=== PATIENT | female | born 1980 ===

== ENCOUNTER 2024-02-23 15:10 | Emergency (ER) | payer OTHER, SELFPAY ==
[2024-02-23] VITALS (7 sets, daily range): BP systolic 110–125; BP diastolic 62–80; PULSE 77–90; RESP 16–18; TEMP 36.7–36.9; O2SAT 94–100; BMI 50.1
--- NOTE | ~2024-02-23 | CT_ITS ---
EXAMINATION: CT ABDOMEN AND PELVIS WITHOUT CONTRAST CLINICAL INFORMATION: Left flank pain COMPARISON: None available. TECHNIQUE: Multidetector volumetric imaging was performed from the superior aspect of the liver through the pubic symphysis. Sagittal and coronal reformatted images were obtained on the technologist's workstation. This CT examination was performed using dose optimization techniques as appropriate, variously including the following: *Automated exposure control *Adjustment of mA and/or kV according to patient size (this includes techniques or standardized protocols for targeted exams where dose is matched to indication/reason for exam; i.e. extremities or head) *Use of iterative reconstruction technique DLP: 1159 mGy-cm FINDINGS: LUNG BASES: 0.3 cm subsolid peripheral nodule posterolateral left lower lobe. In low-risk patient this does not require any specific imaging follow-up. There is a tiny sliding-type hiatal hernia. LIVER, GALLBLADDER, AND BILIARY TREE: There are 3 circumscribed low attenuating lesions in the liver. These are too small to characterize and may represent cysts. In the absence of underlying chronic liver disease or known primary malignancy these do not require any specific imaging follow-up. There are surgical clips in the expected region of the gallbladder. There is no definite biliary dilation. PANCREAS: No suspicious abnormality. SPLEEN: Within normal limits ADRENAL GLANDS: No suspicious abnormality. There is a small circumscribed low attenuating mass in the left adrenal apex consistent with a lipid rich adenoma. This does not require any specific imaging follow-up. KIDNEYS AND URETERS: There is visualization of the intrarenal collecting system on the left. There is no opaque calculus. No perinephric stranding. BLADDER: The bladder is mildly distended. No suspicious abnormality. GASTROINTESTINAL TRACT: There is a large amount of fecal residue throughout the colon. No localized pericolonic fat stranding. ABDOMINAL WALL: No significant hernia is appreciated. LYMPH NODES: There are no enlarged abdominal or pelvic lymph nodes. I suspect a trace amount of nonspecific free pelvic fluid. VASCULAR: There is no abdominal aortic aneurysm. PELVIC VISCERA: Probable physiologic right ovarian cysts. No suspicious adnexal mass or collection. OSSEOUS STRUCTURES: No suspicious focal lesion. Suspect partial right hemilaminectomy at L4. There is lumbar disc narrowing with vacuum phenomena. CT/CT abdomen pelvis wo IV con IMPRESSION: There is no definite opaque urinary calculus. No suspicious mass or collection. The study was performed without IV contrast. Fleischner guidelines were followed.
--- NOTE | 2024-02-23 15:24 | ED_ITS ---
HPI - Abdominal Pain General Chief Complaint: Abdominal Pain Stated Complaint: BILAT FLANK N/V X1 WEEK FROM [facility]HTAQ MCNULTY Time Seen by Provider: 02/23/24 15:18 Source: patient Mode of arrival: ambulatory Limitations: no limitations History of Present Illness HPI narrative: 43-year-old female past history of kidney stones family inpatient psych for depression psychosis she states she has schizophrenia his history of kidney stones over the past week she has had some nausea and vomiting. She has a plan bilateral flank pain when I spoke to her it is mostly in the left. She denies any falls or injuries she denies any dysuria or frequency she states she is allergic to Toradol. Related Data Previous Rx's ?Medication ?Instructions ?Recorded ondansetron 4 mg disintegrating 4 mg PO Q6H #14 tabs 02/23/24 tablet Allergies Allergy/AdvReac Type Severity Reaction Status Date / Time codeine Allergy Unknown Verified 02/23/24 15:21 ketorolac Allergy Unknown Verified 02/23/24 15:21 montelukast [From Singulair] Allergy Unknown Verified 02/23/24 15:21 Penicillins Allergy Unknown Verified 02/23/24 15:21 Review of Systems Review of Systems Review of systems: General: Patient denies any fever chills recent illness or falls Musculoskeletal: Denies back pain or body aches or other injuries HEENT: denies headache, runny nose, ear pain Respiratory: denies shortness of breath, cough Cardiovascular: no chest pain or palpitations : Flank pain denies dysuria, frequency Abdomen: no nausea vomiting denies abdominal pain Extremities: no swelling, no pain Skin: no diaphoresis Yes all other systems are reviewed and are negative PMFSH Social History Social History Advance Directives: No Advance Directives Information Provided: No Physical Exam ED Vital Signs: Vital Signs - 24 hr 02/23/24 15:17 02/23/24 16:02 Temperature 98.4 F 98.4 F Pulse Rate 90 78 Respiratory Rate 18 18 Blood Pressure 122/76 113/67 Pulse Oximetry 98 94 Oxygen Delivery Method Room Air Room Air BMI result Body Mass Index 50.1 General: Well-appearing well-nourished in no signs of distress HEENT: Normocephalic atraumatic Neck: No signs of JVD, no masses no tenderness or lymphadenopathy Cardiovascular: Regular rate and rhythm Respiratory: Clear to auscultation bilaterally Abdomen: Soft nontender no masses 1 no CVA tenderness Extremities: Normal pedal pulses no signs of edema Skin: Dry warm no rashes Back: No tenderness full ROM Course Course Course Narrative: [address] is going for CT scan at this time educated the patient on how to give a clean sample in the future urine is equivocal I will give 1 dose of IV Rocephin while patient is here pending CT scan to rule out pyelonephritis as there was no blood in the urine it is very unlikely this kidney stone. Reevaluation(s) Reevaluation #1: 1735 CT and labs are all unremarkable patient did ask for pain medications and was prescribed some Tylenol we will waiting for the CT. Patient has had no episodes of vomiting I feel comfortable discharging the patient home at this time. With equivocal urinalysis I will hold off on sending home on antibiotics she has Zofran her facility I will discharge the patient this time. Medical Decision Making Medical Decision Making [facility] Narrative: Patient looks well I will send off labs and urine and reassess Differential Diagnosis Differential Diagnoses: The differential diagnosis associated with the presentation includes Kidney stone urinary tract infection pyelonephritis chronic pain Lab Data [facility] Lab Attestation statement: I reviewed the patient's lab results. Questionable UTIs the patient has 20 WBCs but also 20 squamous cells is not a clean sample I am happy to give a dose of Rocephin while awaiting the CT scan here. 02/23/24 15:48 02/23/24 15:48 Labs: Lab Results 02/23/24 02/23/24 02/23/24 Range/Units 15:48 16:10 16:27 WBC 8.9 (4.8-10.8) X10*3/uL RBC 4.36 (4.20-5.50) X10*6/uL Hgb 12.2 (12.0-16.0) g/dl Hct 37.3 (37.0-47.0) % MCV 85.6 (80.0-98.0) fL MCH 28.0 (27.0-33.0) pg MCHC 32.7 (31.0-35.0) g/dl RDW 15.4 (11.0-16.0) % Plt Count 243 (160-400) X10*3/uL MPV 11.0 (9.4-12.3) fL Immature Gran % (Auto) 0.3 (0.0-0.4) % Neut % (Auto) 65.8 (45-73) % Lymph % (Auto) 24.6 (20-40) % [place] % (Auto) 6.3 (2-11) % Eos % (Auto) 2.4 (0-4) % Baso % (Auto) 0.6 (0-2) % Lymph # (Auto) 2.2 (1.2-4.9) X10*3/uL [place] # (Auto) 0.6 (0.1-1.2) X10*3/uL Eos # (Auto) 0.2 (0.0-0.4) X10*3/uL Baso # (Auto) 0.1 (0.0-0.2) X10*3/uL Abs Immat Gran (auto) 0.03 (0.00-0.03) X10*3/uL Absolute Neuts (auto) 5.9 (2.0-8.3) x10*3/uL Absolute Nucleated RBC 0.000 (0.0-0.012) X10*3/uL Nucleated RBC % (auto) 0.0 (0.0-0.2) /100WBC Sodium 141 (135-145) mmol/L Potassium 3.6 (3.3-5.1) mmol/L Chloride 110 H (96-108) mmol/L Carbon Dioxide 24 (22-29) mmol/L Anion Gap 11 L (12-20) BUN 10 (9-16) mg/dL Creatinine 0.87 (0.5-1.4) mg/dL Estim Creat Clear Calc 127.5 Estimated GFR > 60 Random Glucose 100 (60-115) mg/dL Calcium 9.1 (8.4-10.2) mg/dL Beta HCG, Quant < 2 mIU/mL Urine Color Yellow Urine Appearance Cloudy Urine pH 7.5 (5.0-9.0) Ur Specific [place] 1.010 (1.005-1.025) Urine Protein Negative (Neg-Trace) mg/dL Urine Glucose (UA) Negative (Negative) mg/dL Urine Ketones Negative (Negative) mg/dL Urine Blood Negative (Negative) Urine Nitrite Negative (Negative) Ur Leukocyte Esterase Trace H (Negative) Urine RBC 0-2 (0-2) /HPF Urine WBC 11-20 H (0-5) /HPF Ur Squamous Epith Cells >20 (0-2) /HPF Urine Bacteria Trace (None Seen) Hyaline Casts 0-2 (0-2) /LPF Medications Administered Discontinued Medications Generic Name Dose Route Start Last Admin Trade Name Betina PRN Reason Stop Dose Admin Diphenhydramine HCl 25 mg 02/23/24 15:22 02/23/24 15:53 Diphenhydramine Hcl 50 Mg/Ml Vial IVPUSH 02/23/24 15:23 25 mg ONCE ONE Administration Haloperidol Lactate 5 mg 02/23/24 15:22 02/23/24 15:53 Haloperidol Lactate 5 Mg/Ml Vial IVPUSH 02/23/24 15:23 5 mg STAT STA Administration Sodium Chloride 1,000 mls @ 999 mls/hr 02/23/24 15:30 02/23/24 15:54 Ns IV 02/23/24 16:30 999 mls/hr .Q1H1M LOBITO Administration Morphine Sulfate 4 mg 02/23/24 15:22 02/23/24 15:53 Morphine Sulfate 4 Mg/Ml Cartridge IVPUSH 02/23/24 15:23 4 mg ONCE ONE Administration Protocol Discharge Plan Discharge Clinical Impression: Abdominal pain Patient Disposition: Home, Self-Care Instructions: Acute Nausea and Vomiting (ED), Abdominal Pain (ED) Additional Instructions: You seen to the emergency department for nausea and vomiting as well as abdominal pain. You had CT scans and labs done as well as urinalysis which were all unremarkable. Please call follow-up with your Dr. if you have any other concerns please do not hesitate to come back to emergency department. Prescriptions: New ondansetron 4 mg tablet,disintegrating 4 mg PO Q6H Qty: 14 0RF Print Language: Portuguese
[2024-02-23 15:53] LABS: MANUAL DIFF FLAG NO
[2024-02-23] MEDS: Haloperidol Lactate 5 MG/ML VIAL IVPUSH (15:53)
[2024-02-23] MEDS: diphenhydrAMINE HCL 50 MG/ML VIAL 25 MG IVPUSH (15:53)
[2024-02-23] MEDS: Morphine Sulfate 4 MG/ML CARTRIDGE IVPUSH (15:53)
[2024-02-23] MEDS: 0.9 % Sodium Chloride 1,000 ML 999 ML IV (15:54)
[2024-02-23 15:55] LABS: Basophils Absolute Auto 0.1 X10*3/uL (0.0-0.2); Basophils Percent Auto 0.6 % (0-2); Eosinophils Absolute Auto 0.2 X10*3/uL (0.0-0.4); Eosinophils Percent Auto 2.4 % (0-4); Hematocrit 37.3 % (37.0-47.0); Hemoglobin 12.2 g/dl (12.0-16.0); Imm Gran Abs Auto 0.03 X10*3/uL (0.00-0.03); Imm Gran Pct Auto 0.3 % (0.0-0.4); Lymphocytes Absolute Auto 2.2 X10*3/uL (1.2-4.9); Lymphocytes Percent Auto 24.6 % (20-40); Mean Corpuscular HGB Conc 32.7 g/dl (31.0-35.0); Mean Corpuscular Volume 85.6 fL (80.0-98.0); Monocytes Absolute Auto 0.6 X10*3/uL (0.1-1.2); Monocytes Percent Auto 6.3 % (2-11); Neutrophils Absolute Auto 5.9 x10*3/uL (2.0-8.3); Neutrophils Percent Auto 65.8 % (45-73); Platelet Count 243 X10*3/uL (160-400); Red Blood Count 4.36 X10*6/uL (4.20-5.50); Red Cell Distribution Width 15.4 % (11.0-16.0); White Blood Count 8.9 X10*3/uL (4.8-10.8)
[2024-02-23 16:10] LABS: Anion Gap 11 (12-20); Blood Urea Nitrogen 10 mg/dL (9-16); Calcium 9.1 mg/dL (8.4-10.2); Carbon Dioxide 24 mmol/L (22-29); Chloride 110 mmol/L (96-108); Creatinine Clr Calc Pharmacy 127.5; Estimated Glomerular Filt Rate > 60; Glucose Random 100 mg/dL (60-115); Potassium 3.6 mmol/L (3.3-5.1); Sodium 141 mmol/L (135-145)
[2024-02-23 16:38] LABS: Appearance Urine Cloudy; Color Urine Yellow; Glucose Urine UA Negative (Negative); Leukocyte Esterase Urine Trace (Negative); Nitrite Urine Negative (Negative); PH 7.5 (5.0-9.0); UMIC TRIGGER UACC YES; Urine Blood Negative (Negative); Urine Ketones Negative (Negative); Urine Protein Negative (Neg-Trace)
[2024-02-23 16:42] LABS: Bacteria Urine Trace (None Seen); Hyaline Casts Urine 0-2 /LPF (0-2); RBC Urine 0-2 /HPF (0-2); Squamous Epithelial Cell Urine >20 /HPF (0-2); UACC Culture Trigger YES
[2024-02-23 16:47] LABS: HCG Quantitative < 2 mIU/mL
[2024-02-23] MEDS: cefTRIAXone sodium 1 GM in 0.9 % Sodium Chloride 50 ML IV (18:06)
--- NOTE | 2024-02-23 23:19 | PC.NURSE ---
Nursing report provided to nurse Carl at [place] as pt is returning via ambulance.
== END 2024-02-23 23:20 | disposition home or self-care (01) ==
PROVIDERS: Emergency Provider Student in an Organized Health Care Education/Training Program
DX: R10.9 Unspecified abdominal pain (principal)
CPT/HCPCS: 36415; 74176; 80048; 81001; 84702; 85025; 87086; 96361; 96365; 96375; 99284; 99285; J0696; J1200; J1630; J2270